=== PATIENT | female | born 1995 | race Caucasian/White ===

== ENCOUNTER 2018-03-26 17:10 | Emergency (ER) | END 2018-03-26 18:20 | disposition home or self-care (01) ==

== ENCOUNTER 2018-06-21 15:39 | Emergency (ER) | END 2018-06-21 18:47 | disposition home or self-care (01) ==

== ENCOUNTER 2018-07-05 00:07 | Emergency (ER) | END 2018-07-05 02:25 | disposition home or self-care (01) ==